=== PATIENT | male | born 1970 | race Caucasian/White ===

== ENCOUNTER 2018-06-28 12:17 | Emergency (ER) | payer OTHER ==
[~2018-06-28] VITALS: Ht 172.7 cm; Wt 102.5 kg
[2018-06-28 12:20] VITALS: BP 150/90
--- NOTE | 2018-06-28 12:49 | PHYS DOC ---
Past History Past Medical History: Asthma, High Cholesterol Additional Past Medical Histor: chronic neck/back pain Adult General Chief Complaint Chief Complaint: FACE PAIN HPI HPI Patient is a pleasant 47-year-old male who presents to the emergency department for evaluation. He states that getting out of the shower on Friday evening, he slipped, and fell, striking the back of his head on the bathtub. When he was trying to get himself up, he slipped again and fell forward this time, striking his face on the shower. He did not have a loss of consciousness. He sustained an abrasion on the superior aspect of his scalp With his first fall, and a contusion on his face the second time he fell. The impact spot was on his nose, and just below his nose, when he fell forward the second time. His last tetanus has been within the past 10 years. He states that this morning, he developed some bruising below his left eye, and he became concerned and presented to the emergency department for evaluation of the bruise. He is not having any significant pain. He denies any headache, and has not had any vision changes, mental status changes, numbness, or weakness. He has no neck pain, or any other complaints of acute pain at this time. Review of Systems Review of Systems Constitutional: Denies fever or chills [] Eyes: Denies change in visual acuity, redness, or eye pain . Denies diplopia.[] HENT: Denies nasal congestion or sore throat [] Respiratory: Denies cough or shortness of breath [] Cardiovascular: The patient denies any shortness of breath, chest pain, palpitations, or orthopnea [] GI: Denies abdominal pain, nausea, vomiting, bloody stools or diarrhea [] : Denies dysuria or hematuria [] Musculoskeletal: Denies back pain or joint pain [] Integument: Denies rash or skin lesions [] Neurologic: Denies headache, focal weakness or sensory changes [] Physical Exam Physical Exam PHYSICAL EXAM: CONSTITUTIONAL: Well developed, well nourished HEAD: normocephalic, there is a linear abrasion on the posterior scalp, about 3 inches long, without any laceration. There is no surrounding crepitus or tenderness to palpation of the scalp or cranium. The remainder of the cranium is atraumatic EENT: PERRL, EOMI. There is bruising noted below the left eye, medially. The nasal bones are nontender. There is mild tenderness to palpation of the right inferior orbital rim with only mild soft tissue swelling. The maxillary sinuses are nontender bilaterally. There is soft tissue swelling just below the nose, on the upper lip, without any bony tenderness to palpation. The dentition is intact without any loose teeth, there is no laxity to the teeth or alveolar ridge. The mandible is nontender. There is no diplopia, with full extraocular movement. Conjunctivae normal color, sclerae non-icteric; moist mucous membranes. Tympanic membranes are normal bilaterally without hemotympanum. NECK: Supple, non-tender; no meningismus.There is full, painless range of motion of the cervical spine, without any focal bony midline tenderness to palpation. LUNGS: Lungs CTA, breathing even and unlabored. Normal air movement. HEART: Regular rate and rhythm, no murmur CHEST: No deformity; non-tender ABDOMEN: The abdomen is soft, and non-tender, no masses or bruits. EXTREM: Normal ROM; no deformity, no calf tenderness. Normal pulses palpable in all extremities. There is no pedal edema. SKIN: No rash; no diaphoresis NEURO: Alert; normal speech and cognition; CN's grossly intact; strength grossly intact without focal deficit. BACK: No CVA TTP.There is no bony tenderness to palpation of the thoracic or lumbar spine. EKG EKG [] Radiology/Procedures Radiology/Procedures [] Course & Med Decision Making Course & Med Decision Making Evaluation in the emergency Department reveals an asymptomatic man who presents 36 hours after a fall striking his head and face. He has a scalp abrasion, and bruising below his left eye. He states that the main reason for coming to the emergency department was evaluation of the bruise, which is asymptomatic. He denies any significant pain. He has not had any headaches, lethargy, mental status changes, or confusion. The patient appears well, feels well, and his cognition and mental status are normal on assessment. I suspect the patient either has a small contusion in his facial area, or more likely, a small orbital rim or maxillary wall fracture. Given the lack of deformity, significant soft tissue swelling, or significant tenderness, I do not believe that, even if a fracture is present, there would require any intervention. I do not believe that the patient warrants a CT scan, by criteria , for an injury sustained 36 hours ago. Discussed the risks and benefits of imaging with the patient, and the low suspicion that any imaged injuries would bladder changer, which is expectant at this time. The patient agreed, and does not desire CT imaging at this point. I discussed return precautions in detail with the patient, and the need for close PCP follow-up. Dragon Disclaimer Dragon Disclaimer This electronic medical record was generated, in whole or in part, using a voice recognition dictation system. Departure Departure: Impression: Primary Impression: Scalp abrasion Additional Impression: Facial contusion Disposition: HOME, SELF-CARE Condition: STABLE Referrals: GATO LEAL MD (PCP) Patient Instructions: Abrasions, Facial Fracture, Facial or Scalp Contusion Problem Qualifiers LARRY LOBATO MD Jun 28, 2018 12:49
== END 2018-06-28 12:54 | disposition home or self-care (01) ==
LOC: ER 12:17
DX: S00.83XA Contusion of other part of head, initial encounter (principal); S00.01XA Abrasion of scalp, initial encounter; J45.909 Unspecified asthma, uncomplicated; E78.00 Pure hypercholesterolemia, unspecified; G89.29 Other chronic pain; W01.198A Fall on same level from slipping, tripping and stumbling with subsequent striking against other object, initial encounter; Y93.E1 Activity, personal bathing and showering; Y92.89 Other specified places as the place of occurrence of the external cause; Y99.8 Other external cause status
CPT/HCPCS: 99284

== ENCOUNTER 2021-10-08 10:33 | Emergency (ER) | payer OTHER ==
--- NOTE | 2021-10-08 11:31 | PHYS DOC ---
Past History Past Medical History: Asthma, High Cholesterol Additional Past Medical Histor: chronic neck/back pain Past Surgical History: Appendectomy Alcohol Use: None Drug Use: None General Adult EDM: Chief Complaint: CPR/FULL ARREST HPI: HPI: 51-year-old male presents via EMS as a CODE BLUE. Patient is unable to provide any history. The patient was diagnosed with COVID-19 last week. He was not feeling well and called into work this morning. He called his to tell her he was not feeling well. When she arrived at home she found him curled up in a ball on the floor. He was not responsive. She called 911 and began CPR. When EMS arrived, they continued CPR and gave at least 6 rounds of epinephrine prior to arrival. He was in V. fib at one point and he received 2 shocks. His rhythm was asystole the rest of the time. Patient has medical history of asthma using inhalers. He was on no other medications. Review of Systems: Review of Systems: Unable to perform due to critical condition Allergies: Allergies: Allergies Coded Allergies Type Severity Reaction Last Updated Verified No Known Drug Allergies 10/08/21 No Physical Exam: PE: Constitutional: Well developed, well nourished, severe acute distress. [] HENT: Normocephalic, atraumatic, bilateral external ears normal, oropharynx moist, no oral exudates, nose normal. [] Eyes: Pupils fixed and dilated. [] Cardiovascular: Asystole [] Lungs & Thorax: Bilateral breath sounds diminished with rales [] Abdomen: soft, no masses, no pulsatile masses. [] Skin: Cool, dry, no erythema, no rash. [] Back: No obvious trauma [] Extremities: Pale cool skin, no obvious deformity [] Neurologic: Unresponsive, pupils fixed and dilated. [] [] EKG: EKG: [] Radiology/Procedures: Radiology/Procedures: [] Heart Score: C/O Chest Pain: N/A Risk Factors: Risk Factors: DM, Current or recent (<one month) smoker, HTN, HLP, family history of CAD, obesity. Risk Scores: Score 0 - 3: 2.5% MACE over next 6 weeks - Discharge Home Score 4 - 6: 20.3% MACE over next 6 weeks - Admit for Clinical Observation Score 7 - 10: 72.7% MACE over next 6 weeks - Early Invasive Strategies Course & Med Decision Making: Course & Med Decision Making Pertinent Labs and Imaging studies reviewed. (See chart for details) See code sheets for more specific details. The patient was transitioned over to the rdayton. Continuous compressions were being performed. Patient was asystole on first check. CPR resumed. We did a total of 7 rounds of epinephrine with compressions. The patient's eye gel was transitioned over to a 7.0 ET tube. There was difficulty placing the tube due to airway angle and very narrow space to pass the tube. There was good color change. IV was unable to be established but the patient had 2 IVs that were working. There was a significant amount of bloody froth coming from the patient's airway before and after intubation. He was suctioned multiple times. Despite all of our efforts, the patient . I personally informed his next of kin. [] Dragon Disclaimer: Dragon Disclaimer: This electronic medical record was generated, in whole or in part, using a voice recognition dictation system. Departure Departure: Impression: Primary Impression: Cardiopulmonary arrest Additional Impression: COVID-19 Disposition: 20 Condition: Referrals: GATO LEAL MD (PCP) HARDY BARKSDALE DO Oct 08, 2021 11:31
== END 2021-10-08 10:48 ==
LOC: ER 10:33
DX: I46.9 Cardiac arrest, cause unspecified (principal); U07.1 COVID-19; J45.909 Unspecified asthma, uncomplicated; E78.00 Pure hypercholesterolemia, unspecified
CPT/HCPCS: 31500; 92950; 99285-25